=== PATIENT | male | born 1995 | race Caucasian/White ===

== ENCOUNTER 2024-01-14 07:52 | Emergency (ER) | payer BC ==
[2024-01-14] MEDS ORDERED: FAMOTIDINE 20 MG/2 ML VIAL IV ONE (08:42)
[2024-01-14] MEDS ORDERED: ONDANSETRON 4 MG/2 ML VIAL ONE (08:42)
[2024-01-14] MEDS ORDERED: NA CHLORIDE 0.9% 1,000 ML ONE (08:42)
[2024-01-14 09:12] LABS: Absolute Eosinophils 0.4 K/uL (0-0.5); Absolute Lymphocytes (CBC) 0.6 K/uL (0.7-4.9); Absolute Monocytes 0.6 K/uL (0.1-1.3); Absolute Neutrophil 8.8 K/uL (1.8-8.0); Basophils % 0.4 % (0-1.3); Eosinophils % 4.3 % (0-4.4); Hematocrit 45.7 % (39.6-49.0); Hemoglobin 15.6 g/dL (13.6-17.9); Lymphocytes % 5.6 % (15.3-44.8); MCH 29.9 pg (27.0-35.0); MCHC 34.1 g/dL (32.0-36.0); MCV 87.8 fL (80-100); MPV 7.1 fL (7.6-11.3); Monocytes % 5.3 % (3.3-12.3); Neutrophils % 84.4 % (41.7-73.7); Nucleated Red Blood Cells % 0.1 % (0-0); Platelets 276 thou/uL (152-406); RBC Red Blood Cell Count 5.21 M/uL (4.33-5.43); Red Cell Distribution Width 13.3 % (12.1-15.2)
[2024-01-14 09:22] LABS: Albumin 3.8 g/dL (3.4-5.0); Albumin/Globulin Ratio 1.1 (1.1-1.8); Anion Gap 6.8 mEq/L (5.0-15.0); Bilirubin Total 0.7 mg/dL (0.2-1.0); Globulin 3.5 g/dL (2.3-3.5); Potassium 3.8 mEq/L (3.5-5.1); Protein, Total 7.3 g/dL (6.4-8.2)
--- NOTE | 2024-01-14 10:01 | EDPHYS ---
Physician Documentation [facility] Name: Claudy Arriola Age: 28 yrs Sex: Male : 1995 Arrival Date: 01/14/2024 Time: 07:52 Bed 18 Private MD: ED Physician Isacc Verdin HPI: 01/13 10:03 This 28 yrs old Male presents to ER via Ambulatory with complaints of Abdominal Pain, ms3 Vomiting. 10:03 28-year-old male with past medical history of Heck's palsy presents to the emergency ms3 department for nausea and vomiting began at 10 PM last night. Patient endorses chills. He states his discomfort is 7/10. He denies any alleviating or inciting factors. Historical: - Allergies: 08:01 No Known Allergies; ll1 - PMHx: 08:01 bells palsy; ll1 - PSHx: 08:01 2 kidney surgeries; ll1 - Immunization history:: Adult Immunizations up to date. - Infectious Disease History:: Denies. - Social history:: Smoking status: Patient reports the use of cigarette tobacco products, smokes one pack cigarettes per day. ROS: 10:03 Constitutional: Negative for fever, and chills. Neck: Negative for injury, pain, and ms3 swelling, Cardiovascular: Negative for chest pain, and palpitations. Respiratory: Negative for shortness of breath, cough, wheezing, and pleuritic chest pain, MS/Extremity: Negative for injury and deformity, Skin: Negative for injury, rash, and discoloration, 10:03 Abdomen/GI: Positive for nausea and vomiting, Exam: 10:03 Constitutional: This is a well developed, well nourished patient who is awake, alert, ms3 and in no acute distress. Head/Face: Normocephalic, atraumatic. Neck: Trachea midline, no cervical lymphadenopathy. Supple, full range of motion without nuchal rigidity, or vertebral point tenderness. No Meningismus. Chest/axilla: Normal chest wall appearance and motion. Nontender with no deformity. Cardiovascular: Regular rate and rhythm with a normal S1 and S2. No gallops, murmurs, or rubs. Normal PMI, no JVD. No pulse deficits. Respiratory: Lungs have equal breath sounds bilaterally, clear to auscultation and percussion. No rales, rhonchi or wheezes noted. No increased work of breathing, no retractions or nasal flaring. Abdomen/GI: Soft, non-tender, with normal bowel sounds. No distension or tympany. No guarding or rebound. No evidence of tenderness throughout. Skin: Warm, dry with normal turgor. Normal color with no rashes, no lesions, and no evidence of cellulitis. MS/ Extremity: Pulses equal, no cyanosis. Neurovascular intact. Full, normal range of motion. Vital Signs: 08:02 BP 135 / 82; Pulse 86; Resp 17; Temp 98.1(O); Pulse Ox 97% on R/A; Weight 81.65 kg; ll1 Height 5 ft. 11 in. ; Pain 7/10; 10:23 BP 139 / 54; Pulse 69; Resp 16; Pulse Ox 100% on R/A; iw 08:02 Body Mass Index 25.10 (81.65 kg, 180.34 cm) ll1 08:02 Pain Scale: Adult ll1 MDM: 08:09 Patient medically screened. ms3 10:03 Differential diagnosis: Nonspecific abd pain, gastritis, viral gastroenteritis. Data ms3 reviewed: vital signs, nurses notes, and as a result, I will discharge patient. I considered the following discharge prescriptions or medication management in the emergency department Medications were administered in the Emergency Department. See MAR. Counseling: I had a detailed discussion with the patient and/or guardian regarding the historical points, exam findings, and any diagnostic results supporting the discharge/admit diagnosis, lab results, the need for outpatient follow up, to return to the emergency department if symptoms worsen or persist or if there are any questions or concerns that arise at home. Response to treatment: the patient's symptoms have markedly improved after treatment, and as a result, I will discharge patient. Special discussion: Based on the patient's Hx, exam, and Dx evaluation, there is no indication for emergent surgery or inpatient Tx. It is understood by the patient/guardian that if the Sx's persist or worsen they need to return immediately for re-evaluation. ED course: Patient improved after Zofran and IV fluids. Patient to follow-up with primary care physician in 2 to 3 days. All questions were answered. Return precautions discussed include worsening symptoms, or any other concerns. On reevaluation patient is alert and oriented x 4, in no apparent distress, nontoxic-appearing, ambulatory in the emergency department, speaking full sentences. Patient states friends he was with last night also have similar symptoms today.. 01/13 08:21 Order name: CBC with Diff; Complete Time: 09:56 ms3 01/13 08:21 Order name: CMP; Complete Time: 09:28 ms3 01/13 08:21 Order name: IV Saline Lock; Complete Time: 09:14 ms3 01/13 08:21 Order name: Labs collected and sent; Complete Time: 09:14 ms3 Administered Medications: 09:14 Drug: NS 0.9% IV 1000 ml IV at 1 bolus Per protocol; 1000 mL bolus Route: IV; Rate: 1 ph bolus; Site: right antecubital; 10:15 Follow up: Response: No adverse reaction; IV Status: Completed infusion ph 09:14 Drug: Famotidine IVP 20 mg IVP once; dilute with 10 mL 0.9% NaCl; give over 2 minutes ph Route: IVP; Site: right antecubital; 09:30 Follow up: Response: No adverse reaction ph 09:14 Drug: Ondansetron IVP 4 mg IVP once; over 2 minutes Route: IVP; Site: right antecubital;ph 09:45 Follow up: Response: No adverse reaction ph Disposition Summary: 01/14/24 10:00 Discharge Ordered Notes: Location: Home ms3 Condition: Stable ms3 Diagnosis - Nausea with vomiting, unspecified ms3 Followup: ms3 - With: Raul Baumann DO - When: 2 - 3 days - Reason: Recheck today's complaints Discharge Instructions: - Discharge Summary Sheet ms3 - Nausea and Vomiting, Adult ms3 Forms: - Work release form em1 - Medication Reconciliation Form ms3 - Antibiotic Education ms3 - Prescription Opioid Use ms3 - Patient Portal Instructions ms3 - Leadership Thank You Letter ms3 Prescriptions: - ondansetron 4 mg Oral Tablet,disintegrating - take 1 tablet ORAL route every 6 to 8 hours as needed for nausea and vomiting; ms3 15 tablet; Refills: 0, Product Selection Permitted Signatures: Dispatcher [employer] Suzan Cano RN RN ph Christine Campos RN RN [facility] Isacc Verdin DO DO ms3
--- NOTE | 2024-01-14 10:01 | ER ---
Nurse's Notes [facility] Name: Claudy Arriola Age: 28 yrs Sex: Male : 1995 Arrival Date: 01/14/2024 Time: 07:52 Bed 18 Private MD: Diagnosis: Nausea with vomiting, unspecified Presentation: 01/13 08:02 Chief complaint: Patient states: Abdominal pain, bloating, N/V, hot/sweaty since last ll1 night. Coronavirus screen: Client denies travel out of the [place] in the last 14 days. fatigue, nausea, vomiting. Client presents with at least one sign or symptom that may indicate coronavirus-19. Standard/surgical mask placed on the client. Ebola Screen: Patient denies travel to an Ebola-affected area in the 21 days before illness onset. Initial Sepsis Screen: Does the patient meet any 2 criteria? No. Patient's initial sepsis screen is negative. Does the patient have a suspected source of infection? No. Patient's initial sepsis screen is negative. Risk Assessment: Do you want to hurt yourself or someone else? Patient reports no desire to harm self or others. Onset of symptoms was January 13, 2024. 08:02 Method Of Arrival: Ambulatory ll1 08:02 Acuity: YUMIKO 3 ll1 Triage Assessment: 08:03 General: Appears uncomfortable, Behavior is calm, cooperative, appropriate for age. ll1 General: Reports feeling ill for fatigue for. Pain: Complains of pain in abdomen Pain currently is 7 out of 10 on a pain scale. Quality of pain is described as aching, pressure. GI: Reports lower abdominal pain, upper abdominal pain, bloating, cramping, nausea, vomiting. Historical: - Allergies: 08:01 No Known Allergies; ll1 - PMHx: 08:01 bells palsy; ll1 - PSHx: 08:01 2 kidney surgeries; ll1 - Immunization history:: Adult Immunizations up to date. - Infectious Disease History:: Denies. - Social history:: Smoking status: Patient reports the use of cigarette tobacco products, smokes one pack cigarettes per day. Screenin:24 [facility] ED Fall Risk Assessment (Adult) History of falling in the last 3 months, iw including since admission No falls in past 3 months (0 pts). Abuse screen: Denies threats or abuse. Denies injuries from another. Nutritional screening: No deficits noted. Tuberculosis screening: No symptoms or risk factors identified. Assessment: 09:30 General: Appears in no apparent distress. Behavior is calm, cooperative, Denies fever. ph Pain: Complains of pain in abdomen. Neuro: Level of Consciousness is awake, alert, obeys commands, Oriented to person, place, time, situation. GI: Reports lower abdominal pain, upper abdominal pain, nausea, vomiting. Derm: Skin is pink, warm \T\ dry. Vital Signs: 08:02 BP 135 / 82; Pulse 86; Resp 17; Temp 98.1(O); Pulse Ox 97% on R/A; Weight 81.65 kg; ll1 Height 5 ft. 11 in. ; Pain 7/10; 10:23 BP 139 / 54; Pulse 69; Resp 16; Pulse Ox 100% on R/A; iw 08:02 Body Mass Index 25.10 (81.65 kg, 180.34 cm) ll1 08:02 Pain Scale: Adult ll1 ED Course: 07:54 Patient arrived in ED. mr 07:54 Arm band placed on Patient placed in an exam room, on a stretcher. ll1 07:57 Isacc Verdin DO is Attending Physician. ms3 08:03 Triage completed. ll1 08:06 Suzan Trevino, RN is Primary Nurse. ph 08:30 Patient has correct armband on for positive identification. Placed in gown. Bed in low ph position. Call light in reach. Pulse ox on. NIBP on. Door closed. Noise minimized. 09:15 Inserted saline lock: 20 gauge in right antecubital area, using aseptic technique. ph Blood collected. 10:00 Raul Baumann DO is Referral Physician. ms3 10:24 IV discontinued, intact, bleeding controlled, No redness/swelling at site. Pressure iw dressing applied. 10:24 No provider procedures requiring assistance completed. ph Administered Medications: 09:14 Drug: NS 0.9% IV 1000 ml IV at 1 bolus Per protocol; 1000 mL bolus Route: IV; Rate: 1 ph bolus; Site: right antecubital; 10:15 Follow up: Response: No adverse reaction; IV Status: Completed infusion ph 09:14 Drug: Famotidine IVP 20 mg IVP once; dilute with 10 mL 0.9% NaCl; give over 2 minutes ph Route: IVP; Site: right antecubital; 09:30 Follow up: Response: No adverse reaction ph 09:14 Drug: Ondansetron IVP 4 mg IVP once; over 2 minutes Route: IVP; Site: right antecubital;ph 09:45 Follow up: Response: No adverse reaction ph Medication: 09:30 VIS not applicable for this client. ph Outcome: 10:00 Discharge ordered by . ms3 10:24 Discharged to home ambulatory, with family, iw 10:24 Condition: good 10:24 Discharge instructions given to patient, family, Instructed on discharge instructions, follow up and referral plans. medication usage, Demonstrated understanding of instructions, follow-up care, medications, Prescriptions given X 1, 10:24 Patient left the ED. iw Signatures: Jessica Osman, Micky Reg mr Diana Ramesh, RN MALU iw Suzan Trevino RN RN ph Lewis, Lynsay, RN RN ll1 Isacc Verdin DO DO ms3
[2024-01-14 10:40] VITALS: BP 139/54; TEMP 98.1; O2SAT 100
== END 2024-01-14 10:24 | disposition home or self-care (01) ==
LOC: ER 07:52
DX: R11.2 Nausea with vomiting, unspecified (principal); F17.210 Nicotine dependence, cigarettes, uncomplicated
CPT/HCPCS: 96361; 85025; 36415; 80053; 96375; 96374; 99284; J2405; J7030